=== PATIENT | female | born 1995 | race African-American/Black ===

== ENCOUNTER 2017-05-31 14:43 | Emergency (ER) | payer OTHER ==
[~2017-05-31] VITALS: Ht 160 cm; Wt 50.0 kg
[2017-05-31 14:46] VITALS: BP 179/121; PULSE 95; RESP 15; TEMP 98.4; O2SAT 95
[2017-05-31] MEDS ORDERED: SODIUM CHLOR 0.9% 1000 ML INJ 1,000 ML IV SCH (16:29)
[2017-05-31] MEDS ORDERED: ONDANSETRON HCL 4 MG/2 ML VIAL IVP ONE (16:30)
[2017-05-31] MEDS ORDERED: KETOROLAC TROMETHAMINE 30 MG/ML (IVP) VIAL IVP ONE (16:30)
--- NOTE | 2017-05-31 16:45 | PD ---
HPI Chief Complaint: Medical Clearance Time Seen by Provider: 15:45 Travel History International Travel<30 days: No Contact w/Intl Traveler<30days: No Traveled to known affect area: No History of Present Illness HPI 21-year-old female with PMH of heart murmur presents to the ED with multiple medical complaints. She complains of chills, dizziness, headache, chest pain, palpitations, shortness of breath, nausea, vomiting, abdominal pain, fatigue, muscle weakness. She states the symptoms onset gradually for "about a week." No alleviating or exacerbating factors reported. She denies vision changes, decreased appetite, dysuria, vaginal discharge. She states that she is currently menstruating and denies risk of . PFSH Past Medical History Autoimmune Disease: No Anxiety: No Depression: No Heart Rhythm Problems: Yes (murmur) Cardiomyopathy: Yes (HEART MURMUR) Cardiovascular Problems: Yes Diminished Hearing: No Gastrointestinal Disorders: Yes (vomiting) Genitourinary: No Musculoskeletal: No Neurologic: No Psychiatric: No Respiratory: No ?: Unknown : 0 Past Surgical History Surgical History: No Previous Surgery Social History Alcohol Use: No Tobacco Use: Yes (ONCE WEEKLY) Substance Use: No Allergies-Medications (Allergen,Severity, Reaction): Coded Allergies: No Known Allergies (Verified , 05/10/15) Reported Meds & Prescriptions Reported Meds & Active Scripts Active Ibuprofen 600 Mg Tab 600 Mg PO Q8H PRN Macrobid (Nitrofurantoin Monoh/Nitrofur Macro) 100 Mg Cap 100 Mg PO BID 7 Days Review of Systems Except as stated in HPI: all other systems reviewed are Neg Physical Exam Narrative GENERAL: Thin, petite black female in no acute distress. SKIN: Focused skin assessment warm/dry. Multiple bruises over the anterior aspects of bilateral shins. HEAD: Normocephalic. EYES: No scleral icterus. No injection or drainage. ENT: Pearly tiwari tympanic membranes bilaterally. Oropharynx without erythema, edema, exudate. NECK: Supple, trachea midline. No JVD or lymphadenopathy. CARDIOVASCULAR: Regular rate and rhythm. RESPIRATORY: Breath sounds clear and equal bilaterally. No accessory muscle use. GASTROINTESTINAL: Abdomen soft, non-tender, nondistended. Active bowel sounds. MUSCULOSKELETAL: No cyanosis, or edema. Negative Homans sign bilaterally. NEUROLOGICAL: Awake and alert. Cranial nerves II through XII intact. Motor and sensory grossly within normal limits. Five out of 5 muscle strength in all muscle groups. Normal speech. BACK: Nontender without obvious deformity. No CVA tenderness. Data Data Last Documented VS Vital Signs Date Time Temp Pulse Resp B/P (MAP) Pulse Ox O2 Delivery O2 Flow Rate FiO2 05/31/17 18:33 05/31/17 15:44 18 05/31/17 14:46 98.4 95 95 Orders Orders Ed Urine Pregnancytest Poc (05/31/17 15:45) Urinalysis - C+S If Indicated (05/31/17 15:45) Complete Blood Count With Diff (05/31/17 16:29) Comprehensive Metabolic Panel (05/31/17 16:29) Prothrombin Time / Inr (Pt) (05/31/17 16:29) Act Partial Throm Time (Ptt) (05/31/17 16:29) Iv Access Insert/Monitor (05/31/17 16:29) Ondansetron Inj (Zofran Inj) (05/31/17 16:30) Sodium Chlor 0.9% 1000 Ml Inj (Ns 1000 M (05/31/17 16:29) Ketorolac Inj (Toradol Inj) (05/31/17 16:30) Chest, Single Ap (05/31/17 ) Urine Culture (05/31/17 17:24) Ed Discharge Order (05/31/17 18:22) Electrocardiogram (05/31/17 15:55) Labs Laboratory Tests Test 05/31/17 16:31 05/31/17 17:24 White Blood Count 5.7 TH/MM3 Red Blood Count 3.86 MIL/MM3 Hemoglobin 10.9 GM/DL Hematocrit 33.7 % Mean Corpuscular Volume 87.2 FL Mean Corpuscular Hemoglobin 28.4 PG Mean Corpuscular Hemoglobin Concent 32.5 % Red Cell Distribution Width 16.5 % Platelet Count 227 TH/MM3 Mean Platelet Volume 8.6 FL Neutrophils (%) (Auto) 59.6 % Lymphocytes (%) (Auto) 27.2 % Monocytes (%) (Auto) 12.4 % Eosinophils (%) (Auto) 0.5 % Basophils (%) (Auto) 0.3 % Neutrophils # (Auto) 3.4 TH/MM3 Lymphocytes # (Auto) 1.6 TH/MM3 Monocytes # (Auto) 0.7 TH/MM3 Eosinophils # (Auto) 0.0 TH/MM3 Basophils # (Auto) 0.0 TH/MM3 CBC Comment DIFF FINAL Differential Comment Prothrombin Time 13.2 SEC Prothromb Time International Ratio 1.2 RATIO Activated Partial Thromboplast Time 30.3 SEC Blood Urea Nitrogen 7 MG/DL Creatinine 0.86 MG/DL Random Glucose 81 MG/DL Total Protein 7.7 GM/DL Albumin 4.3 GM/DL Calcium Level 9.5 MG/DL Alkaline Phosphatase 73 U/L Aspartate Amino Transf (AST/SGOT) 28 U/L Alanine Aminotransferase (ALT/SGPT) 25 U/L Total Bilirubin 0.5 MG/DL Sodium Level 138 MEQ/L Potassium Level 3.6 MEQ/L Chloride Level 106 MEQ/L Carbon Dioxide Level 26.5 MEQ/L Anion Gap 6 MEQ/L Estimat Glomerular Filtration Rate 102 ML/MIN Urine Color RED Urine Turbidity CLEAR Urine pH 6.5 Urine Specific [place] 1.033 Urine Protein 100 mg/dL Urine Glucose (UA) NEG mg/dL Urine Ketones 40 mg/dL Urine Occult Blood LARGE Urine Nitrite NEG Urine Bilirubin NEG Urine Urobilinogen 2.0 MG/DL Urine Leukocyte Esterase NEG Urine RBC /hpf Urine WBC 22 /hpf Urine Mucus MOD /lpf Microscopic Urinalysis Comment CULTURE INDICATED MDM Medical Decision Making Medical Screen Exam Complete: Yes Emergency Medical Condition: Yes Differential Diagnosis Anemia versus UTI versus less likely ACS versus malingering versus other Narrative Course 21-year-old female with PMH of heart murmur presents to the ED with multiple vague medical complaints. Currently menstruating and denies risk of . Patient is afebrile on presentation. Physical exam reveals a petite black female in no acute distress. There is some bruising on the anterior aspects of the bilateral shins. ENT exam is unremarkable. Chest is CTAB. Abdomen soft, nontender. No CVA tenderness. Homans sign negative bilaterally. IV was established. Patient was administered 30 mg of Toradol and 1 L normal saline IV. EKG rate 89, sinus rhythm. Normal intervals. Normal axis. No ST changes. Reviewed by Dr. Vargas. CXR normal for patient this age. CBC remarkable for hemoglobin of 10.4. Chronic per chart review. CMP coags without concerning abnormalities. UA 22 wbc's and moderate mucus. Culture indicated. Patient is prescribed Macrobid 100 mg twice a day 7 days and short course of anti-inflammatories. She is instructed to take all medication as prescribed, follow with the primary care provider, return for worsening symptoms. She is provided a note for work. She is stable and discharged home. Diagnosis Primary Impression: UTI (urinary tract infection) Qualified Codes: N30.01 - Acute cystitis with hematuria Referrals: Primary Care Physician Departure Forms: Tests/Procedures, Work Release Enter return to work date: Jun 01, 2017 Additional Instructions: Rest, hydrate. Take all antibiotics as prescribed, even if your symptoms resolve. In other words take all of the antibiotics until they're gone. Follow-up with your primary care provider. Return to the ED for worsening symptoms or any urgent or emergent medical condition. Med/Other Pt SpecificInfo: Prescription(s) given Scripts Ibuprofen (Ibuprofen) 600 Mg Tab 600 MG PO Q8H Y for PAIN, #15 TAB 0 Refills Prov: Geovanna Vargas MD 05/31/17 Nitrofurantoin Monohydrate Macrocrystals (Macrobid) 100 Mg Cap 100 MG PO BID for Infection for 7 Days, #14 CAP 0 Refills Prov: Geovanna Vargas MD 05/31/17 Disposition: 01 DISCHARGE HOME Condition: Stable Bethany Mckinley May 31, 2017 16:45
[2017-05-31 17:00] LABS: AUTOMATED NEUTROPHIL # 3.4 TH/MM3 (1.8-7.7); BASOPHIL % 0.3 % (0.0-2.0); EOSINOPHIL % 0.5 % (0.0-4.0); HEMATOCRIT 33.7 % (35.0-46.0); HEMO FLAGS DIFF FINAL; LYMPH % 27.2 % (9.0-44.0); LYMPHOCYTE # 1.6 TH/MM3 (1.0-4.8); MEAN CELL VOLUME 87.2 FL (80.0-100.0); MEAN CORPUSCULAR HEMOGLOBIN 28.4 PG (27.0-34.0); MEAN CORPUSCULAR HGB CONC 32.5 % (32.0-36.0); MONO % 12.4 % (0.0-8.0); NEUT % 59.6 % (16.0-70.0); PLATELET COUNT 227 TH/MM3 (150-450); RED BLOOD COUNT 3.86 MIL/MM3 (4.00-5.30); RED CELL DISTRIBUTION WIDTH 16.5 % (11.6-17.2); WHITE BLOOD COUNT 5.7 TH/MM3 (4.0-11.0)
[2017-05-31 17:05] LABS: APTT (PATIENT) 30.3 SEC (24.3-30.1); INTERNATIONAL NORMALIZED RATIO 1.2 RATIO; PROTHROMBIN TIME - PATIENT 13.2 SEC (9.8-11.6)
[2017-05-31 17:19] LABS: ANION GAP 6 MEQ/L (5-15); AST (GOT) 28 U/L (16-38); BICARBONATE 26.5 MEQ/L (21.0-32.0); BLOOD UREA NITROGEN 7 MG/DL (7-18); CHLORIDE 106 MEQ/L (98-107); GLOMERULAR FILTRATION RATE 102 ML/MIN (>89); POTASSIUM 3.6 MEQ/L (3.5-5.1); SODIUM (NA) 138 MEQ/L (136-145)
[2017-05-31 17:20] LABS: ALT (GPT) 25 U/L (9-42)
[2017-05-31 17:22] LABS: ALKALINE PHOSPHATASE 73 U/L (45-117); TOTAL BILIRUBIN ADULT 0.5 MG/DL (0.2-1.0)
[2017-05-31 17:46] LABS: BLOOD, URINE LARGE (NEG); COMMENT (UR) CULTURE INDICATED; CULTURE IF INDICATED CULTURE INDICATED; GLUCOSE,URINE NEG (NEG); KETONE, URINE 40 mg/dL (NEG); MUCUS URINE MOD /lpf (OCC); NITRITE,URINE NEG (NEG); PH, URINE 6.5 (5.0-8.5)
[2017-05-31 17:54] LABS: URINE COLOR RED (YELLW/STRAW)
--- NOTE | 2017-05-31 18:00 | RADRPT ---
EXAM DATE/TIME: 05/31/2017 17:54 [facility] COMPARISON: No previous studies available for comparison. INDICATIONS : Short of breath. MEDICAL HISTORY : None. SURGICAL HISTORY : None. ENCOUNTER: Initial ACUITY: 1 day PAIN SCORE: 7/10 LOCATION: Bilateral chest FINDINGS: A single view of the chest demonstrates the lungs to be symmetrically aerated without evidence of mas s, infiltrate or effusion. The cardiomediastinal contours are unremarkable. Osseous structures are intact. CONCLUSION: Normal examination for a patient of this age. Yogesh Canela MD on May 31, 2017 at 17:59 Board Certified Radiologist. This report was verified electronically.
[2017-05-31] MEDS ORDERED: MACR100C2 PO (18:01)
[2017-05-31] MEDS ORDERED: IBUP-232 PO (18:01)
--- NOTE | 2017-06-01 17:25 | EKG ---
Date Performed: 05/31/2017 Time Performed: 15:55:55 PTAGE: 21 years EKG: Sinus rhythm NONSPECIFIC T-WAVE ABNORMALITY BORDERLINE ECG PREVIOUS TRACING : 06/15/2015 08.33 DOCTOR: Faith Watson Interpretating Date/Time 06/01/2017 17:23:38
== END 2017-05-31 18:44 | disposition home or self-care (01) ==
LOC: NEPD 14:43
DX: N30.01 Acute cystitis with hematuria (principal); B96.89 Other specified bacterial agents as the cause of diseases classified elsewhere; R01.1 Cardiac murmur, unspecified
CPT/HCPCS: 71010; 80053; 81001; 84703; 85025; 85610; 85730; 87086; 93005; 96361; 96374; 96375; 99284; J1885; J2405; J7030

== ENCOUNTER → 2018-01-21 | Outpatient (CLI) | payer OTHER ==
[~2018-01-21] MED LIST: IBUP-232 PO; MACR100C2 PO
== END ==
LOC: HPND 08:16
PROVIDERS: ATTEND Obstetrics & Gynecology
DX: O35.1XX0 Maternal care for (suspected) chromosomal abnormality in fetus, not applicable or unspecified (principal); O99.212 Obesity complicating pregnancy, second trimester; E66.09 Other obesity due to excess calories; Z68.33 Body mass index [BMI] 33.0-33.9, adult; Z36.3 Encounter for antenatal screening for malformations
CPT/HCPCS: 76805

== ENCOUNTER 2018-06-25 10:54 | Inpatient (IN) ==
[2018-06-25] MEDS ORDERED: Sod Chloride 0.9% Inj 1,000 ML IV.CONT PRN (11:47)
[2018-06-25] MEDS ORDERED: Naloxone Inj 0.4 MG/ML Vial IV.PUSH PRN ×2 (11:47→23:28)
[2018-06-25] MEDS ORDERED: Sodium Chlor 0.9% Inj 500 ML IV.SIG PRN (11:47)
[2018-06-25] MEDS ORDERED: Oxytocin 30 Units/500ml Premix 30 UNITS/500 ML BAG IV.SIG ONE (11:47)
[2018-06-25] MEDS ORDERED: fentaNYL Citrate Inj 100 MCG/2 ML Ampul IV.PUSH PRN (11:47)
--- NOTE | 2018-06-25 11:47 | ED ---
History of Present Illness Primary Care Physician: No Primary Care Physician Chief Complaint: Non-reactive NST History of Present Illness: Patient is a 22 year old at 40 weeks and 6 day who presents to OB triage following a non-reactive NST in OB office earlier this morning. She experiences regular contractions; unsure of how far contractions are apart. She denies fluid leakage and vaginal bleeding. She endorses positive movement. She has received care at [facility]. She denies complications during this . Weeks Gestation:: 40 Para: 0 : 1 Review of Systems All other systems reviewed negative except as stated in HPI PMFSH - History History Provided By: Patient - Medical / Surgical Hx Neg / Unobtainable Surgical History: No Previous Surgery - Medical History Medical History: Medical History (Last Updated 06/25/18 @ 11:39 by Jennifer Forbes MD, R2) Tricuspid regurgitation - Social History I have reviewed the patient's Social History: Yes - Tobacco History Second Hand Smoke Exposure: No Tobacco Use In Past 30 Days: No Smoking Status: Never smoker - Alcohol History How Often Do You Have a Drink Containing Alcohol: Never - Substance Use History Substance History: No History of Abuse Medications and Allergies Allergies Allergy/AdvReac Type Severity Reaction Status Date / Time No Known Allergies Allergy Uncoded 05/10/15 22:50 Exam Vital signs: Vital Signs 06/25/18 11:13 06/25/18 11:14 Temperature 98.4 F Pulse Rate 103 H Respiratory Rate 20 Blood Pressure 126/70 Narrative: GENERAL: Well-nourished, well-developed patient. SKIN: Warm and dry. HEAD: Normocephalic and atraumatic. EYES: No scleral icterus. No injection or drainage. ENT: No nasal drainage noted. Mucous membranes pink. Airway patent. NECK: Supple, trachea midline. No JVD. CARDIOVASCULAR: Regular rate and rhythm. RESPIRATORY: Breath sounds equal bilaterally. No accessory muscle use. ABDOMEN/GI: Abdomen soft, non-tender, bowel sounds present, no rebound, no guarding Gravid to 40 weeks size GENITOURINARY: External Genitalia: intact and normal in appearance Dilatation: 0 cm Effacement: 20% Station: -3 Membranes: intact Uterine Contractions: q2min FHT's: Category: 1 Baseline: 140 Reactive: - Variability: moderate Decels: none EXTREMITIES: No cyanosis or edema. NEUROLOGICAL: Awake and alert. Motor and sensory grossly within normal limits. Normal speech. Results - Labs Group B Strep: Negative Assessment and Plan - Diagnosis (1) 40 weeks gestation of Code(s): Z3A.40 - 40 weeks gestation of Status: Acute (2) NST (non-stress test) nonreactive Code(s): O28.8 - Other abnormal findings on screening of mother Status: Acute - Plan Patient is a 22 year old at 40 weeks and 6 day who presents to OB triage following a non-reactive NST in OB office earlier this morning. Admit to L&D for induction of labor. Routine L&D orders placed. GBS negative. Anticipate vaginal delivery. dw OB hospitalist Discharge Plan - Discharge Condition Condition: Stable - Physicians Team Primary Care Provider: Primary Care Janiya mSith Attending Provider: Abhijeet Cedillo
[2018-06-25] MEDS ORDERED: Citric Acid/Sodium Citrate Liq 30 ML UDC PO SCH (12:00)
[2018-06-25 12:13] LABS: Baso % (Auto) 0.2 % (0.0-2.0); Eos % (Auto) 0.3 % (0.0-4.0); Hematocrit 40.4 % (35.0-46.0); Hemoglobin 13.7 gm/dL (11.6-15.3); Lymph # (Auto) 1.5 th/mm3 (1.0-4.8); Lymph % (Auto) 23.1 % (9.0-44.0); Mean Corpuscular Hemoglobin 33.5 pg (27.0-34.0); Mean Corpuscular Volume 98.7 fL (80.0-100.0); Mean Platelet Volume 10.9 fL (7.0-11.0); Mono # (Auto) 0.6 th/mm3 (0.0-0.9); Mono % (Auto) 9.4 % (0.0-8.0); Neut # (Auto) 4.4 th/mm3 (1.8-7.7); Platelet Count 128 th/mm3 (150-450); Red Blood Count 4.09 mil/mm3 (4.00-5.30); Red Cell Distribution Width 13.9 % (11.6-17.2); White Blood Count 6.6 th/mm3 (4.0-11.0)
[2018-06-25 12:28] LABS: Amphetamine Urine With Conf Neg (Neg); Benzodiazepine Urine With Conf Neg (Neg); Cocaine Urine With Conf Neg (Neg); Opiates Urine With Conf Neg (Neg)
[2018-06-25 12:29] LABS: Cannabinoid Urine With Conf Neg (Neg)
[2018-06-25] MEDS ORDERED: Measles/Mumps/Rubella Vaccine Inj 0.5 ML Vial SQ ONE (16:00)
[2018-06-25] MEDS ORDERED: Diphtheria/Tetanus/Pertussis Vaccine Inj 0.5 ML Syringe IM ONE (16:00)
[2018-06-25] MEDS: fentaNYL Citrate Inj 100 MCG/2 ML Ampul IV.PUSH PRN ×2 (16:15→17:23)
[2018-06-25] MEDS ORDERED: fentaNYL 2MCG-Bupiv 0.125% Epi 150 ML EPIDURAL ONE (18:39)
[2018-06-25] MEDS ORDERED: Lidocaaine 1.5%/Epinephrine 1:200,000 PF Inj 5 ML Amp ONE (19:28)
[2018-06-25] MEDS ORDERED: Lidocaine PF 1% Inj 5 ML Vial ONE (19:29)
[2018-06-25] MEDS ORDERED: fentaNYL 2MCG-Bupiv 0.125% Epi 150 ML EPIDURAL PRN (20:47)
[2018-06-25] MEDS ORDERED: fentaNYL Citrate Inj 100 MCG/2 ML Ampul EPIDURAL ONE (20:47)
[2018-06-25] MEDS ORDERED: Oxytocin 30 Units/500ml Premix 30 UNITS/500 ML BAG ONE ×2 (22:16)
[2018-06-25] MEDS ORDERED: Witch Hazel 50%/Glyderin 12.5% 40 Pad Jar RECTAL PRN (23:28)
[2018-06-25] MEDS ORDERED: Zolpidem Tartrate 5 MG Tablet PO PRN (23:28)
[2018-06-25] MEDS ORDERED: Benzocaine 20% Top Spray 60 ML Can TOPICAL PRN (23:28)
[2018-06-25] MEDS ORDERED: Oxytocin 30 Units/500ml Premix 30 UNITS/500 ML BAG IV.CONT PRN (23:28)
[2018-06-25] MEDS ORDERED: Acetaminophen 325 MG Tablet PO PRN (23:28)
[2018-06-25] MEDS ORDERED: Bisacodyl 10 MG Supp RECTAL PRN (23:28)
--- NOTE | 2018-06-25 23:37 | P.OBDELI ---
Additional Information: Weeks Gestation: 40 Anesthesia: Epidural Presentation: Vertex, OA Nuchal Cord: No Shoulder Dystocia: No Delayed Cord Clamping: No Placenta: Intact, three-vessel cord Episiotomy: None Laceration: None Repair: None Estimated Blood Loss: 150 Delivery Time: 231 Delivery Date: 06/18/18 : male Weight: 3375 (1 min): 7 (5 min): 9 Supervised by: Drs. Rob
--- NOTE | 2018-06-26 08:37 | P.PNOB ---
Subjective Post day: 1 Interval history: day # 1. AFVSS overnight. Pain well-controlled with Motrin this morning. Decreased lochia. Denies dysuria. No breast tenderness. She is feeding the baby via breast. Appetite good. No nausea or vomiting. She has not passed flatus or had a bowel movements. Ambulating well. Denies calf pain, shortness of breath, or cough. Otherwise, she is doing well this morning and has no other complaints. Updated by nursing staff at 10:15AM that the patient was having increased abdominal cramping and back pain. Passing no clots. Per nursing staff patient looks relaxed has been up and moving around all morning without pain. Vital signs are stable, no tachycardia or elevated blood pressure. Will review medications and and pain medication as necessary. Objective Vital Signs/I&O: Vital Signs 06/25/18 11:13 06/25/18 11:14 06/25/18 13:02 Temperature 98.4 F Pulse Rate 103 H 82 Respiratory Rate 20 Blood Pressure 126/70 124/73 06/25/18 13:06 06/25/18 14:31 06/25/18 17:08 Temperature 98.0 F Pulse Rate 90 Respiratory Rate 18 18 18 Blood Pressure 120/68 06/25/18 17:11 06/25/18 19:10 06/25/18 19:15 Temperature Pulse Rate 97 H 87 89 Respiratory Rate 18 Blood Pressure 119/85 06/25/18 19:20 06/25/18 19:25 06/25/18 20:01 Temperature Pulse Rate 92 H 100 H 82 Respiratory Rate Blood Pressure 83/32 L 123/81 06/25/18 20:13 06/25/18 20:28 06/25/18 20:56 Temperature 98.3 F Pulse Rate 94 H 112 H Respiratory Rate 18 Blood Pressure 119/59 L 128/75 06/25/18 21:08 06/25/18 21:31 06/25/18 21:46 Temperature Pulse Rate 115 H 106 H 100 H Respiratory Rate Blood Pressure 122/72 134/70 112/60 06/25/18 22:47 06/25/18 23:43 06/25/18 23:46 Temperature Pulse Rate 143 H 113 H 107 H Respiratory Rate 18 Blood Pressure 147/72 H 132/48 L 126/50 L 06/25/18 23:52 06/26/18 00:01 06/26/18 00:30 Temperature Pulse Rate 114 H 111 H Respiratory Rate 16 16 Blood Pressure 118/70 113/91 H 06/26/18 00:31 06/26/18 00:45 06/26/18 00:46 Temperature Pulse Rate 115 H 112 H Respiratory Rate 18 Blood Pressure 101/64 114/62 06/26/18 01:15 Temperature 98.5 F Pulse Rate 108 H Respiratory Rate 20 Blood Pressure 121/54 L Intake & Output 06/25/18 06/26/18 06/26/18 18:59 06:59 18:59 Weight 92.533 kg Result Diagrams: 06/25/18 11:37 Objective Remarks: GENERAL: Well-nourished, well-developed patient. CARDIOVASCULAR: Regular rate and rhythm without murmurs, gallops, or rubs. RESPIRATORY: Breath sounds equal bilaterally. No accessory muscle use. ABDOMEN/GI: Abdomen soft, non-tender. Fundus: Firm, non-tender at umbilicus. GENITOURINARY: Light to moderate bleeding. EXTREMITIES: No cyanosis or edema, non-tender, without signs of DVT. Medications and IVs: Active Medications Acetaminophen (Tylenol) 650 mg PO Q4H PRN PRN Reason: PAIN SCALE 1 TO 2 Al Hydroxide/Mg Hydroxide (Milk Of Magnesia Liq) 30 ml PO Q12H PRN PRN Reason: Mild Constipation Benzocaine (Americaine 20% Top [place]) 1 spray TOPICAL Q4H PRN PRN Reason: For Perineum Discomfort Bisacodyl (Dulcolax Supp) 10 mg RECTAL DAILY PRN PRN Reason: SEVERE CONSITIPATION Oxytocin (Pitocin 30 Units/Ns 500 Ml Premix) 30 units in 500 mls @ 100 mls/hr IV.CONT UNSCH PRN PRN Reason: Heavy bleeding Ibuprofen (Motrin) 800 mg PO Q8H PRN PRN Reason: For Cramping Last Admin: 06/26/18 00:30 Dose: 800 mg Lactulose (Lactulose Liq) 30 ml PO DAILY PRN PRN Reason: SEVERE CONSITIPATION Naloxone HCl (Narcan Inj) 0.1 mg IV.PUSH Q2M PRN PRN Reason: for opiate reversal Ondansetron HCl (Zofran Odt) 4 mg PO Q6H PRN PRN Reason: NAUSEA OR VOMITING Senna/Docusate Sodium (Angela-Colace) 1 tab PO BID [facility] Sennosides (Senokot) 17.2 mg PO Q12H PRN PRN Reason: Moderate Constipation Sodium Chloride (Ns Flush) 2 ml IV.FLUSH BID KHOA Sodium Chloride (Ns Flush) 2 ml IV.FLUSH PRN PRN PRN Reason: FLUSH AFTER USING IV ACCESS Witch Gracia/Glycerin (Tucks Pads) 1 applicatio RECTAL QID PRN PRN Reason: HEMORRHOIDS Zolpidem Tartrate (Ambien) 5 mg PO HS PRN PRN Reason: SLEEP Assessment and Plan - Diagnosis (1) Vaginal delivery Code(s): I07.1 - Rheumatic tricuspid insufficiency Status: Acute (2) 40 weeks gestation of Code(s): Z3A.40 - 40 weeks gestation of Status: Acute - Plan 22 year old who is PPD# 1 s/p . -Continue routine care. -Tylenol, Motrin and Percocet as needed for pain. -Encouraged OOB. Advised pelvic rest for 6 wks. -Will need a f/u appt. within 6 wks. -Contraception: she would like to continue to consider her options -Anticipate discharge tomorrow sdw Dr. Mitra briones OB attending, Dr. Cedillo
[2018-06-26] MEDS: Senna/Docusate Sodium 8.6/50 MG Tablet PO SCH ×2 (08:48→22:28)
[2018-06-27 08:17] VITALS: BP 112/65; PULSE 84; RESP 20; TEMP 98
--- NOTE | 2018-06-27 09:59 | P.PNOB ---
Subjective Post day: 2 Interval history: day # 2. AFVSS overnight. Pain well-controlled. Decreased lochia. Denies dysuria. No breast tenderness. She is feeding the baby via breast. Appetite good. No nausea or vomiting. Passing flatus. Having bowel movements. Ambulating well. Denies calf pain, shortness of breath, or cough. Otherwise , she is doing well this morning and has no other complaints. Objective Vital Signs/I&O: Vital Signs 06/26/18 20:00 06/27/18 08:00 Temperature 98.2 F 98.0 F Pulse Rate 80 84 Respiratory Rate 18 20 Blood Pressure 110/63 112/65 Result Diagrams: 06/25/18 11:37 Objective Remarks: GENERAL: Well-nourished, well-developed patient. CARDIOVASCULAR: Regular rate and rhythm. Systolic murmur 3/6. RESPIRATORY: Breath sounds equal bilaterally. No accessory muscle use. ABDOMEN/GI: Abdomen soft, non-tender. Fundus: Firm, non-tender below umbilicus. GENITOURINARY: Light to moderate bleeding. EXTREMITIES: No cyanosis or edema, non-tender, without signs of DVT. Medications and IVs: Active Medications Acetaminophen (Tylenol) 650 mg PO Q4H PRN PRN Reason: PAIN SCALE 1 TO 2 Al Hydroxide/Mg Hydroxide (Milk Of Magnbrandie Liq) 30 ml PO Q12H PRN PRN Reason: Mild Constipation Benzocaine (Americaine 20% Top [place]) 1 spray TOPICAL Q4H PRN PRN Reason: For Perineum Discomfort Bisacodyl (Dulcolax Supp) 10 mg RECTAL DAILY PRN PRN Reason: SEVERE CONSITIPATION Oxytocin (Pitocin 30 Units/Ns 500 Ml Premix) 30 units in 500 mls @ 100 mls/hr IV.CONT UNSCH PRN PRN Reason: Heavy bleeding Ibuprofen (Motrin) 800 mg PO Q8H PRN PRN Reason: For Cramping Last Admin: 06/26/18 08:48 Dose: 800 mg Lactulose (Lactulose Liq) 30 ml PO DAILY PRN PRN Reason: SEVERE CONSITIPATION Naloxone HCl (Narcan Inj) 0.1 mg IV.PUSH Q2M PRN PRN Reason: for opiate reversal Ondansetron HCl (Zofran Odt) 4 mg PO Q6H PRN PRN Reason: NAUSEA OR VOMITING Oxycodone/Acetaminophen (Percocet 5/325 Mg) 2 tab PO Q4H PRN PRN Reason: PAIN SCALE 6 TO 10 Last Admin: 06/26/18 22:28 Dose: 2 tab Oxycodone/Acetaminophen (Percocet 5/325 Mg) 1 tab PO Q4H PRN PRN Reason: PAIN SCALE 3 TO 5 Senna/Docusate Sodium (Angela-Colace) 1 tab PO BID [facility] Last Admin: 06/26/18 22:28 Dose: 1 tab Sennosides (Senokot) 17.2 mg PO Q12H PRN PRN Reason: Moderate Constipation Sodium Chloride (Ns Flush) 2 ml IV.FLUSH BID [facility] Last Admin: 06/26/18 22:29 Dose: Not Given Sodium Chloride (Ns Flush) 2 ml IV.FLUSH PRN PRN PRN Reason: FLUSH AFTER USING IV ACCESS Witch Gracia/Glycerin (Tucks Pads) 1 applicatio RECTAL QID PRN PRN Reason: HEMORRHOIDS Zolpidem Tartrate (Ambien) 5 mg PO HS PRN PRN Reason: SLEEP Assessment and Plan - Diagnosis (1) Vaginal delivery Code(s): I07.1 - Rheumatic tricuspid insufficiency Status: Acute (2) 40 weeks gestation of Code(s): Z3A.40 - 40 weeks gestation of Status: Acute (3) Heart murmur on physical examination Code(s): R01.1 - Cardiac murmur, unspecified Status: Acute - Plan 22 year old who is PPD# 2 s/p . -Continue routine care. -Tylenol, Motrin and Percocet as needed for pain. -Encouraged OOB. Advised pelvic rest for 6 wks. -Will need a f/u appt. within 6 wks. -Contraception: she would like to continue to consider her options -Patient's heart murmur being followed by PCP, to see hospital aides and assistants teacher -Hemorrhoids noted on exam, will give RX for hemorrhoidal cream and stool softener -Anticipate discharge today sdw Dr. Manriquez and OB attending, Dr. Hubbard - Attending Attestation I personally saw and examined patient with the resident and participated in all augirre decision making. Continue routine care, routine instructions given, anticipate discharge today. SMS
[2018-06-27] MEDS: Senna/Docusate Sodium 8.6/50 MG Tablet PO SCH (10:40)
== END 2018-06-27 13:08 | disposition home or self-care (01) | DRG 805 ==
LOC: HOBED 10:54 → H2E 11:35 → H1EA 06-26 01:19
PROVIDERS: ADMIT Obstetrics & Gynecology Maternal & Fetal Medicine; ATTEND Obstetrics & Gynecology Maternal & Fetal Medicine
CPT/HCPCS: 59025; 80101; 80301; 80307; 85025; 86850; 86900; 86901; 90715; 99285; G0431; G0479; G0481; G0483; J2590; J3010; J7120